=== PATIENT | female | born 1965 | race Caucasian/White ===

== ENCOUNTER 2017-01-07 13:28 | Observation (INO) | payer MEDICAID, SELFPAY ==
[2017-01-07 13:49] VITALS: BP 125/99; PULSE 90; RESP 18; TEMP 36.8
[2017-01-07 13:54] VITALS: BMI 30.4
--- NOTE | 2017-01-07 13:57 | HP.PCM_ITS ---
Problem List (1) Hepatitis C Status: Chronic Qualifiers: Viral hepatitis chronicity: unspecified (2) Tobacco use Status: Chronic (3) Anxiety and depression Status: Chronic (4) Obesity (BMI 30.0-34.9) Status: Chronic History of Present Illness Date of Admission: 01/07/17 Chief Complaint: Acute Opiate Withdrawal The patient is a 51 y/o F w/ PMHx: Tobacco use, Anxiety and Depression, IVDA w/ Heroine clean x 2 years w/ recent relapse 6-8 weeks prior w/ 1-1.5 gm day usage who presents to the [facility] at [facility] on 01/07/17 w/ noted opiate withdrawal onset starting 01/06/17 afternoon following last dose 01/06/17 8:30 am of approximately 0.25 gram, last injected into her wrists with abdominal pain/ cramping, generalized body aches and pains, rhinorrhea, piloerection, fatigue, restless leg, sweating, yawning. Patient interested in attaining clean status and notes that she has been in the acute withdrawal settings once prior. She currently notes being homeless. She admits to depression and anxiety but is not on any treatment but denies SI. She notes interest in obtaining hepatitis C treatment once able. Past Medical History Past Medical History (Chronic Problems): Chronic Problems Anxiety and depression (Chronic) Hepatitis C (Chronic) Obesity (BMI 30.0-34.9) (Chronic) Tobacco use (Chronic) Allergies No Known Allergies Allergy (Verified 01/07/17 13:51) Surgical History: - - Left breast lumpectomy ?2, cholecystectomy, appendectomy, ?3. 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 Tobacco Use: Cigarettes Alcohol: None Drugs: Heroin, Marijuana - *Family History Maternal History Items: No pertinent history Paternal History Items: No pertinent history Review of Systems Constitutional: Reports: Anorexia, Chills, Malaise, Weakness, Fatigue. Denies: Fever, Weight Change HEENT: Reports: Head Aches. Denies: Sinus Congestion, Sinus Drainage Cardiovascular: Denies: Chest Pain, Palpitations Respiratory: Denies: Cough, Shortness of breath at rest, Sputum production Gastrointestinal: Reports: Abdominal Pain, Diarrhea, Nausea. Denies: Vomiting Genitourinary: Denies: Dysuria Musculoskeletal: Reports: Back Pain, Leg Pain, Neck Pain, Shoulder Pain. Denies : Joint Pain, Joint Tenderness Skin: Denies: Rash, Wounds Neurological: Denies: Numbness, Tingling, Focal weakness Psychiatric: Reports: Anxiety, Depression. Denies: Homicidal Ideations, Suicidal Ideations Hematologic/ Lymphatic: Denies: Easy Bruising, Easy Bleeding VTE Information - Inpt Only VTE Present on Admission: No VTE Mechan Device Prophylaxis: SCD's VTE Pharm Prophylaxis ordered?: No Reason prophylaxis not ordered:: Treatment Not Indicated Subjective: Seated upright in the bed, mildly anxious appearing, acute withdrawal evident. Objective: Physical Examination: General: awake, alert, oriented x 3 and cooperative, seated upright in bed, mildly agitated, acute withdrawal evident. Skin: normal color, turgor, no icterus, cyanosis, BL wrist and forearm injection sites without evidence of infection or erythema, NTTP. HEENT: AT/NC, EOMI, PERRLA, mild rhinorrhea and congested noted, dry MM, no carotid bruits or JVD noted. Lungs: CTA bilaterally, moderate effort, moderate decrease BL bases, no rales, ronchi or wheezing. Heart: Regular rate and rhythm; no gallop, rub audible. Abdomen: soft, mild generalized TTP, ND, hyperactive BS, + HM. Extremities: no cyanosis, clubbing, or edema. Neurological: patient awake, alert, oriented x 3; cognitive function intact; pupils equally reactive to light and accomodation; cranial nerves II-XII grossly normal, moving all 4 extremities, no focal deficits, strength moderately globally decreased secondary to acute presentation. Psychiatric: affect appears mildly agitated and anxious, no acute evidence of depressive feelings. - Physical Exam Vital Signs Temp Pulse Resp BP Pulse Ox 98.3 F 90 18 125/99 01/07/17 13:49 01/07/17 13:49 01/07/17 13:49 01/07/17 13:49 Weight: 177 lb 4.026 oz Body Mass Index (BMI) 30.4 Assessment/Plan The patient is a 51 y/o F w/ PMHx: Tobacco use, Anxiety and Depression, IVDA w/ Heroine clean x 2 years w/ recent relapse 6-8 weeks prior w/ 1-1.5 gm day usage who presents to the [facility] at [facility] on 01/07/17 w/ noted acute opiate withdrawal. (1) Acute Opiate Withdrawal: Will admit to [place], obtain routine labs including CBC , CMP, urine for drug screen, urinalysis, serum lipase, routine EKG and will initiate and continue on [facility] service protocol with tapering course of Subutex, as needed Seroquel, Librium, Sinemet, Catapres, Bentyl, Vistaril, IV fluids, IV antiemetics, Tylenol as needed for pain. Once patient clinically improved and completion of taper nearing will plan [facility] assistance for transition to next level of rehabilitation care. (2) Polysubstance Abuse, IVDA Hx, History of Hepatitis C, Chronic: Patient currently not candidate for hep C treatment currently as needs to be clean, sober x 6 months, documented attendance NA or AA meetings, counseling and ongoing negative drug screens. Once appropriate GI, ID to initiate. HIV, hepatitis panel to assess for co-infection pending. Encouraged PCP establishment and follow-up. (3) Tobacco Abuse: Encouraged cessation, inpatient consultation per RT, NR if desired. (4) Depression and Anxiety: Recommendation for consideration of SSRI, possible sertraline given low cost and effectiveness in addition to therapy. (5) Obesity: Weight loss and lifestyle recommendations encouraged. (6) DVT Prophylaxis: TEDs, low risk, ambulation.
[2017-01-07 14:00] VITALS: BMI 30.4
[2017-01-07] MEDS: Buprenorphine HCl 2 MG TAB.SUBL SL ×2 (14:29→21:33)
[2017-01-07] MEDS: Carbidopa/Levodopa 25/100 Tablet PO (14:29)
[2017-01-07] MEDS: cloNIDine HCl 0.1 MG Tablet 0.2 MG PO (14:29)
[2017-01-07] MEDS: chlordiazePOXIDE 25 MG Capsule PO ×3 (14:29→21:33)
[2017-01-07] MEDS: Loperamide 2 MG Capsule PO (14:29)
[2017-01-07] MEDS: Methocarbamol 750 MG Tablet PO (14:29)
[2017-01-07] MEDS: QUEtiapine 25 MG Tablet PO (14:29)
[2017-01-07 14:54] LABS: Absolute Lymphocyte Count 2.19 X10^3/ul (0.83-4.51); Absolute Neutrophil Count 6.9 X10^3/uL (2.0-7.7); Basophil# 0.03 X10^3/uL; Basophil% 0.3 % (0-1); Eosinophil# 0.02 X10^3/uL; Eosinophils% 0.2 % (0-5); Hematocrit 48.3 % (37-47); Hemoglobin 16.7 g/dl (12.0-15.0); Lymphocyte # 2.19 X10^3/ul (4.0); Lymphocyte % 22.5 % (19-41); Mean Corp Hgb Conc 34.6 g/gl (32-36); Mean Corpuscular Hgb 30.8 pg (27.0-32.0); Mean Corpuscular Volume 89.1 fL (81-99); Mean Platelet Vol. 11.9 fl (6.2-12.0); Monocyte# 0.62 X10^3/uL; Monocyte% 6.4 % (0-10); Neutrophil # 6.87 X10^3/uL (2.7-7.7); Neutrophil % 70.5 % (47-70); POSITIVE COUNT NO; POSITIVE DIFFERENTIAL NO; POSITIVE MORPHOLOGY NO; Platelet Count 240 K/mm3 (150-450); RBC Distribution Width CV 12.5 % (11.6-14.6); Red Blood Count 5.42 M/mm3 (4.2-5.4); White Blood Count 9.7 K/mm3 (4.4-11.0)
[2017-01-07 14:59] LABS: International Normalized Ratio 1.1; Prothrombin Time (Protime)PT. 14.1 SECONDS (11.7-14.9)
[2017-01-07 15:16] LABS: Alcohol, Blood (Medical)-Serum < 3.0 mg/dL
[2017-01-07 15:19] LABS: ALB/GLOB Ratio 0.9 RATIO (0.9-2.4); AST(SGOT) 32 U/L (15-37); Alanine Aminotransfer ALT/SGPT 45 U/L (12-78); Albumin, Serum 4.1 g/dL (3.4-5.0); Alkaline Phosphatase 108 U/L (45-117); Anion Gap 10 (5-15); BUN 7 mg/dL (7-18); Calcium,Total 9.7 mg/dL (8.5-10.1); Chloride 107 mmol/L (98-107); Creatinine, Serum 0.78 mg/dL (0.55-1.02); EST Glomerular Filtration Rate 82 mL/min (>60); Est Glom Filt Rate - Afr Amer 100 mL/min (>60); Estimated Creatinine Clearance 73.68 ml/min; Globulin 4.6 g/dL (2.3-3.5); Glucose 95 mg/dL (70-110); Lipase 115 U/L (73-393); Potassium 3.7 mmol/L (3.5-5.1); Protein, Total 8.7 g/dL (6.4-8.2); Sodium Level 140 mmol/L (136-145)
[2017-01-07 18:29] VITALS: BP 101/65; PULSE 78; RESP 18; TEMP 36.7
[2017-01-07 18:42] LABS: Bacteria 0 SEEN /hpf (None Seen)
[2017-01-07 18:49] LABS: Color, Urine Yellow (Yellow); Glucose, Dipstick Normal (Normal); Ketone-Dipstick 5 mg/dl (Negative); Leukocyte Esterase-Dipstick 25 /ul (Negative); Nitrite-Dipstick Negative (Negative); Occult Blood-Urine 10 /ul (Negative); Protein-Dipstick 30 mg/dl (Negative); Urine Clarity Sl. Cloudy (Clear); Urine Urobilinogen 1 mg/dl (Normal)
[2017-01-07 18:50] LABS: Urine Bilirubin Dipstick 1 mg/dL (Negative)
[2017-01-07 18:54] LABS: Red Blood Cells-Urine 0-5 SEEN /hpf (0-5); Squamous Epithelial Cells - UA 0-5 SEEN /hpf (5-10); White Blood Cells 0-5 SEEN /hpf (0-5)
[2017-01-07 18:55] LABS: Mucous, Urine 3+ /hpf (<or=2+)
[2017-01-07 19:00] LABS: Amphetamine Urine VISTA NEGATIVE (<1000 ng/mL); Barbiturate Urine VISTA NEGATIVE (< 200 ng/mL); Benzodiazepine Urine VISTA POSITIVE (< 200 ng/mL); Cocaine Urine VISTA NEGATIVE (< 300 ng/mL); Ecstacy Urine VISTA NEGATIVE (< 500 ng/mL); Methadone Urine VISTA NEGATIVE (< 300 ng/mL); PCP Urine VISTA NEGATIVE (< 25 ng/mL); THC Urine VISTA POSITIVE (< 50 ng/mL); Vista UDS pH Range 6
[2017-01-07 19:51] VITALS: BP 97/61; PULSE 72; RESP 16; TEMP 36.3; O2SAT 98
[2017-01-07] MEDS: traZODone 50 MG Tablet PO (21:34)
[2017-01-08 02:27] VITALS: BP 92/62; PULSE 62; RESP 16; TEMP 36.4; O2SAT 98
[2017-01-08] MEDS: chlordiazePOXIDE 25 MG Capsule PO ×5 (02:30→21:39)
[2017-01-08] MEDS: Dicyclomine 10 MG Capsule 20 MG PO ×2 (02:30→17:59)
[2017-01-08] MEDS: Buprenorphine HCl 2 MG TAB.SUBL SL ×3 (06:12→21:39)
--- NOTE | 2017-01-08 09:29 | PN_ITS ---
Subjective: Patient denies any acute events overnight per self and per nursing report aside difficulty sleeping secondary to patient yelling out per her report. He notes withdrawal symptoms markedly improved since initial presentation. Patient denies fevers, chills, nausea, emesis, abdominal pain, chest pain or dyspnea. Objective: Physical Examination: General: awake, alert, oriented x 3 and cooperative, seated upright in bedside chair, NAD, calm, fatigued appearance. Skin: normal color, turgor, no icterus, cyanosis, BL wrist and forearm injection sites without evidence of infection or erythema, NTTP. HEENT: AT/NC, EOMI, PERRLA, MMM. Lungs: CTA bilaterally, moderate effort, moderate decrease BL bases, no rales, ronchi or wheezing. Heart: Regular rate and rhythm; no gallop, rub audible. Abdomen: soft, NTTP, ND, normalized BS. Extremities: no cyanosis, clubbing, or edema, see skin. Neurological: patient awake, alert, oriented x 3; cognitive function intact; pupils equally reactive to light and accomodation; cranial nerves II-XII grossly normal, moving all 4 extremities, no focal deficits, strength improved, mildly globally decreased. Psychiatric: affect appears normalized, no acute evidence of depressive or anxiety feelings. Vitals/I&O's: Vital Signs Temp Pulse Resp BP Pulse Ox 97.5 F 62 16 92/62 98 01/08/17 02:27 01/08/17 02:27 01/08/17 02:27 01/08/17 02:27 01/08/17 02:27 Oxygen Delivery Method Room Air Weight: 177 lb 4.026 oz Body Mass Index (BMI) 30.4 Intake and Output for Last 24 Hours 01/06/17 01/07/17 01/08/17 23:59 23:59 23:59 Intake Total 480 480 Balance 480 480 Laboratory Results 01/07/17 14:30: Hepatitis A IgM Ab Pending, Hepatitis A Ab Total Pending, Hep Bs Antigen Pending, Hep B Core Total Ab Pending, Hep B Core IgM Ab Pending, Hepatitis C Comment Pending, HIV 1&2 Ag/Ab, 4th Gen Pending 01/07/17 14:30: WBC 9.7, RBC 5.42 H, Hgb 16.7 H, Hct 48.3 H, MCV 89.1, MCH 30.8 , MCHC 34.6, RDW 12.5, RDW Differential 40.0, Plt Count 240, MPV 11.9, Immature Gran % (Auto) 0.100, Neut % (Auto) 70.5 H, Lymph % (Auto) 22.5, [place] % (Auto) 6.4, Eos % (Auto) 0.2, Baso % (Auto) 0.3, Absolute Neuts (auto) 6.9, Absolute Lymphs (auto) 2.19, Total Counted Not Reportable 01/07/17 14:30: PT 14.1, INR 1.1 01/07/17 14:30: Sodium 140, Potassium 3.7, Chloride 107, Carbon Dioxide 23.0, Anion Gap 10, BUN 7, Creatinine 0.78, Estim Creat Clear Calc 73.68, Est GFR ( MDRD) Af Amer 100, Est GFR (MDRD) Non-Af 82, BUN/Creatinine Ratio 9.0 L, Glucose 95, Calcium 9.7, Total Bilirubin 0.80, AST 32, ALT 45, Alkaline Phosphatase 108, Total Protein 8.7 H, Albumin 4.1, Globulin 4.6 H, Albumin/ Globulin Ratio 0.9, Lipase 115 01/07/17 14:30: Ethyl Alcohol < 3.0 01/07/17 : Urine Opiates Screen NEGATIVE, Urine Methadone Screen NEGATIVE, Ur Barbiturates Screen NEGATIVE, Ur Phencyclidine Scrn NEGATIVE, Ur Amphetamines Screen NEGATIVE, U Methamphetamin-MDMA NEGATIVE, U Benzodiazepines Scrn POSITIVE H, Urine Cocaine Screen NEGATIVE, U Cannabinoids Screen POSITIVE H, Ur Drug Screen Comment 01/07/17 : Urine Color Yellow, Urine Clarity Sl. Cloudy, Urine pH 6.0, Ur Specific [place] 1.020, Urine Protein 30 H, Urine Glucose (UA) Normal, Urine Ketones 5 H, Urine Occult Blood 10 H, Urine Nitrite Negative, Urine Bilirubin 1 H, Urine Urobilinogen 1 H, Ur Leukocyte Esterase 25 H, Urine RBC 0-5 SEEN, Urine WBC 0-5 SEEN, Ur Squamous Epith Cells 0-5 SEEN, Urine Bacteria 0 SEEN, Urine Mucus 3+ Current Medications Acetaminophen (Tylenol) 650 mg PO Q4H PRN PRN PRN Reason: Temp>99.1F Al Hydroxide/Mg Hydroxide (Mylanta Ii) 30 ml PO Q6H PRN PRN PRN Reason: dyspesia Bisacodyl (Dulcolax) 10 mg RECTAL DAILY PRN PRN Reason: Constipation Buprenorphine HCl (Buprenorphine Hcl) 4 mg SL Q8H JODY PRN Reason: Taper Stop: 01/10/17 18:29 Last Admin: 01/08/17 06:12 Dose: 4 mg Carbidopa/Levodopa (Sinemet) 1 tablet PO Q8H PRN PRN PRN Reason: RESTLESSNESS Last Admin: 01/07/17 14:29 Dose: 1 tablet Chlordiazepoxide (Librium) 25 mg PO Q4 JODY Stop: 01/08/17 10:01 Last Admin: 01/08/17 06:12 Dose: 25 mg Chlordiazepoxide (Librium) 25 mg PO Q6H PRN PRN PRN Reason: Mod-Sev Anxiety (score 2-3/3) Clonidine (Catapres) 0.1 mg PO Q2H PRN PRN Reason: Hot/Cold Sweats or Anxiety Dicyclomine HCl (Bentyl) 20 mg PO Q6H PRN PRN PRN Reason: Abdomnial Discomfort Last Admin: 01/08/17 02:30 Dose: 20 mg Folic Acid (Folic Acid) 1 mg PO DAILY@0800 [facility] Hydroxyzine Pamoate (Vistaril) 50 mg PO Q6H PRN PRN PRN Reason: Mild Anxiety (score 1/3) Last Admin: 01/07/17 14:29 Dose: 50 mg Ibuprofen (Motrin) 800 mg PO Q8H PRN PRN PRN Reason: Mild-Moderate Pain (1-5/10) Loperamide HCl (Imodium) 2 - 4 mg PO UD PRN PRN Reason: LOOSE STOOLS Last Admin: 01/07/17 14:29 Dose: 4 mg Methocarbamol (Methocarbamol) 750 mg PO 4X/DAY PRN PRN Reason: Muscle Aches Last Admin: 01/07/17 14:29 Dose: 750 mg Multivitamins/Minerals (Multivitamin With Minerals) 1 tablet PO DAILYCM [facility] Nicotine (Nicoderm Cq (Pbkc)) 21 mg TRANSDERM. DAILY [facility] Last Admin: 01/07/17 14:29 Dose: 21 mg Nutritional Formula (Lactose Free) (Ensure Enlive) 120 ml PO 4X/DAY [facility] Last Admin: 01/07/17 21:34 Dose: 120 ml Ondansetron HCl (Zofran Odt) 4 mg PO Q6H PRN PRN PRN Reason: NAUSEA Quetiapine Fumarate (Seroquel) 25 mg PO Q6H PRN PRN PRN Reason: Moderate Anxiety (score 2/3) Last Admin: 01/07/17 14:29 Dose: 25 mg Senna (Senokot) 1 tablet PO QHS PRN PRN Reason: Constipation Thiamine HCl (Vitamin B1) 100 mg PO DAILYCM JODY Trazodone HCl (Desyrel) 50 mg PO QHS [facility] Last Admin: 01/07/17 21:34 Dose: 50 mg Assessment/Plan The patient is a 51 y/o F w/ PMHx: Tobacco use, Anxiety and Depression, IVDA w/ Heroine clean x 2 years w/ recent relapse 6-8 weeks prior w/ 1-1.5 gm day usage who presents to the [facility] at [facility] on 01/07/17 w/ noted acute opiate withdrawal. (1) Acute Opiate Withdrawal: Admitted to [place], routine labs obtained and not marked appearing, UDS w/ + BZD and cannabis. Initiated on and will continue [facility] service protocol with tapering course of Subutex, as needed Seroquel, Librium, Sinemet, Catapres, Bentyl, Vistaril, IV fluids, IV antiemetics, Tylenol as needed for pain. Once patient clinically improved and completion of taper nearing will plan [facility] assistance for transition to next level of rehabilitation care. (2) Polysubstance Abuse, IVDA Hx, History of Hepatitis C, Chronic: Patient currently not candidate for hep C treatment currently as needs to be clean, sober x 6 months, documented attendance NA or AA meetings, counseling and ongoing negative drug screens. Once appropriate GI, ID to initiate. HIV, hepatitis panel to assess for co-infection pending. Encouraged PCP establishment and follow-up. (3) Tobacco Abuse: Encouraged cessation, inpatient consultation per RT, NR if desired. (4) Depression and Anxiety: Recommendation for consideration of SSRI, possible sertraline given low cost and effectiveness in addition to therapy. (5) Obesity: Weight loss and lifestyle recommendations encouraged. (6) DVT Prophylaxis: TEDs, low risk, ambulation.
[2017-01-08 10:52] VITALS: BP 87/61; PULSE 60; RESP 18; TEMP 36.3
[2017-01-08] MEDS: Folic Acid 1 MG Tablet PO (10:55)
[2017-01-08] MEDS: Multivitamins,Ther W-Minerals Tablet 1 TABLET PO (10:55)
[2017-01-08] MEDS: Thiamine Hydrochloride 100 MG Tablet PO (10:55)
[2017-01-08] MEDS: Carbidopa/Levodopa 25/100 Tablet PO ×2 (11:00→20:35)
[2017-01-08] MEDS: Methocarbamol 750 MG Tablet PO ×3 (11:00→21:39)
[2017-01-08] MEDS: Ondansetron ODT 4 MG Tablet PO ×2 (11:00→17:59)
[2017-01-08] MEDS: QUEtiapine 25 MG Tablet PO ×2 (11:00→21:39)
[2017-01-08 14:00] VITALS: BP 88/43; PULSE 64; RESP 18; TEMP 36.8
[2017-01-08 17:53] VITALS: BP 98/59; PULSE 61; RESP 18; TEMP 37
[2017-01-08 19:28] VITALS: BP 91/56; PULSE 61; RESP 16; TEMP 36.6
[2017-01-08] MEDS: Ibuprofen 400 MG Tablet 800 MG PO (20:35)
[2017-01-08] MEDS: traZODone 50 MG Tablet PO (21:39)
[2017-01-09] MEDS: Acetaminophen 325 MG Tablet 650 MG PO (03:56)
[2017-01-09 03:58] VITALS: BP 94/55; PULSE 59; RESP 16; TEMP 36.6
[2017-01-09] MEDS: Carbidopa/Levodopa 25/100 Tablet PO ×2 (06:16→21:24)
[2017-01-09] MEDS: Buprenorphine HCl 2 MG TAB.SUBL SL ×2 (06:16→18:09)
[2017-01-09] MEDS: chlordiazePOXIDE 25 MG Capsule PO ×3 (06:16→19:13)
[2017-01-09] MEDS: Methocarbamol 750 MG Tablet PO ×3 (06:16→21:23)
--- NOTE | 2017-01-09 06:48 | PCM.PN.HOSP ---
Subjective: Patient with no acute events overnight per self and per nursing report. She did this morning admit to some reflux symptoms and had requested Mylanta which was administered. She additionally noted some dyspepsia and mild nausea with this episode but this has resolved at this time. Discussed treatment since and famotidine oral regimen also started. States that withdrawal symptoms are currently alleviated and she aside from mild anxiety is feeling well. Patient denies fevers, chills, nausea, emesis, abdominal pain, chest pain or dyspnea. Objective: Physical Examination: General: awake, alert, oriented x 3 and cooperative, seated upright in bedside chair, NAD. Skin: normal color, turgor, no icterus, cyanosis, BL wrist and forearm injection sites without evidence of infection or erythema. HEENT: AT/NC, EOMI, PERRLA, MMM. Lungs: CTA bilaterally, moderate effort, moderate decrease BL bases, no rales, ronchi or wheezing. Heart: Regular rate and rhythm; no gallop, rub audible. Abdomen: soft, NTTP, ND, normalized BS. Extremities: no cyanosis, clubbing, or edema, see skin. Neurological: patient awake, alert, oriented x 3; cognitive function intact; pupils equally reactive to light and accomodation; cranial nerves II-XII grossly normal, moving all 4 extremities, no focal deficits, strength improved, near baseline, preserved. Psychiatric: affect appears normal, notes can be anxious at night, but currently no acute evidence of depressive or anxiety feelings. Vitals/I&O's: Vital Signs Temp Pulse Resp BP Pulse Ox 98 F 59 16 94/55 98 01/09/17 03:58 01/09/17 03:58 01/09/17 03:58 01/09/17 03:58 01/08/17 02:27 Oxygen Delivery Method Room Air Weight: 177 lb 4.026 oz Body Mass Index (BMI) 30.4 Intake and Output for Last 24 Hours 01/07/17 01/08/17 01/09/17 23:59 23:59 23:59 Intake Total 480 1320 Balance 480 1320 Current Medications Acetaminophen (Tylenol) 650 mg PO Q4H PRN PRN PRN Reason: Temp>99.1F Last Admin: 01/09/17 03:56 Dose: 650 mg Al Hydroxide/Mg Hydroxide (Mylanta Ii) 30 ml PO Q6H PRN PRN PRN Reason: dyspesia Bisacodyl (Dulcolax) 10 mg RECTAL DAILY PRN PRN Reason: Constipation Buprenorphine HCl (Buprenorphine Hcl) 2 mg SL Q12H JODY PRN Reason: Taper Stop: 01/10/17 18:29 Last Admin: 01/09/17 06:16 Dose: 2 mg Carbidopa/Levodopa (Sinemet) 1 tablet PO Q8H PRN PRN PRN Reason: RESTLESSNESS Last Admin: 01/09/17 06:16 Dose: 1 tablet Chlordiazepoxide (Librium) 25 mg PO Q6H PRN PRN PRN Reason: Mod-Sev Anxiety (score 2-3/3) Last Admin: 01/09/17 06:16 Dose: 25 mg Clonidine (Catapres) 0.1 mg PO Q2H PRN PRN Reason: Hot/Cold Sweats or Anxiety Dicyclomine HCl (Bentyl) 20 mg PO Q6H PRN PRN PRN Reason: Abdomnial Discomfort Last Admin: 01/08/17 17:59 Dose: 20 mg Folic Acid (Folic Acid) 1 mg PO DAILY@0800 [facility] Last Admin: 01/08/17 10:55 Dose: 1 mg Hydroxyzine Pamoate (Vistaril) 50 mg PO Q6H PRN PRN PRN Reason: Mild Anxiety (score 1/3) Last Admin: 01/09/17 03:56 Dose: 50 mg Ibuprofen (Motrin) 800 mg PO Q8H PRN PRN PRN Reason: Mild-Moderate Pain (1-5/10) Last Admin: 01/08/17 20:35 Dose: 800 mg Loperamide HCl (Imodium) 2 - 4 mg PO UD PRN PRN Reason: LOOSE STOOLS Last Admin: 01/07/17 14:29 Dose: 4 mg Methocarbamol (Methocarbamol) 750 mg PO 4X/DAY PRN PRN Reason: Muscle Aches Last Admin: 01/09/17 06:16 Dose: 750 mg Multivitamins/Minerals (Multivitamin With Minerals) 1 tablet PO DAILYCM [facility] Last Admin: 01/08/17 10:55 Dose: 1 tablet Nicotine (Nicoderm Cq (Pbkc)) 21 mg TRANSDERM. DAILY [facility] Last Admin: 01/08/17 10:55 Dose: 21 mg Nutritional Formula (Lactose Free) (Ensure Enlive) 120 ml PO 4X/DAY [facility] Last Admin: 01/08/17 21:39 Dose: 120 ml Ondansetron HCl (Zofran Odt) 4 mg PO Q6H PRN PRN PRN Reason: NAUSEA Last Admin: 01/08/17 17:59 Dose: 4 mg Quetiapine Fumarate (Seroquel) 25 mg PO Q6H PRN PRN PRN Reason: Moderate Anxiety (score 2/3) Last Admin: 01/08/17 21:39 Dose: 25 mg Senna (Senokot) 1 tablet PO QHS PRN PRN Reason: Constipation [facility] Last Admin: 01/08/17 10:55 Dose: 100 mg Trazodone HCl (Desyrel) 50 mg PO QHS [facility] Last Admin: 01/08/17 21:39 Dose: 50 mg Assessment/Plan The patient is a 51 y/o F w/ PMHx: Tobacco use, Anxiety and Depression, Chronic Hepatitis C, IVDA w/ Heroine clean x 2 years w/ recent relapse 6-8 weeks prior w/ 1-1.5 gm day usage who presents to the [facility] at [facility] on 01/07/17 w/ noted acute opiate withdrawal. (1) Acute Opiate Withdrawal: Admitted to [place], routine labs obtained and not marked appearing, UDS w/ + BZD and cannabis. Initiated on and will continue [facility] service protocol with tapering course of Subutex, as needed Seroquel, Librium, Sinemet, Catapres, Bentyl, Vistaril, IV fluids, IV antiemetics, Tylenol as needed for pain. Once patient clinically improved and completion of taper nearing will plan [facility] assistance for transition to next level of rehabilitation care. Per protocol would plan discharge to home tomorrow. (2) Polysubstance Abuse, IVDA Hx, History of Hepatitis C, Chronic: Patient currently not candidate for hep C treatment currently as needs to be clean, sober x 6 months, documented attendance NA or AA meetings, counseling and ongoing negative drug screens. Once appropriate GI, ID to initiate. HIV, hepatitis panel to assess for co-infection pending. Encouraged PCP establishment and follow-up. (3) Tobacco Abuse: Encouraged cessation, inpatient consultation per RT, NR if desired. (4) Depression and Anxiety: Recommendation for consideration of SSRI, possible sertraline given low cost and effectiveness in addition to therapy. (5) Obesity: Weight loss and lifestyle recommendations encouraged. (6) DVT Prophylaxis: TEDs, low risk, ambulation.
[2017-01-09] MEDS: Ondansetron ODT 4 MG Tablet PO (07:38)
[2017-01-09] MEDS: Mag Hydrox/Al Hydrox/Simeth 30 ML UDC PO (07:38)
[2017-01-09 07:42] VITALS: BP 85/52; PULSE 50; RESP 16; TEMP 36.3; O2SAT 99
[2017-01-09] MEDS: Folic Acid 1 MG Tablet PO (08:57)
[2017-01-09] MEDS: Famotidine 20 MG Tablet PO ×2 (08:57→21:23)
[2017-01-09] MEDS: QUEtiapine 25 MG Tablet PO ×2 (09:01→21:23)
[2017-01-09] MEDS: Multivitamins,Ther W-Minerals Tablet 1 TABLET PO (09:26)
[2017-01-09] MEDS: Thiamine Hydrochloride 100 MG Tablet PO (09:26)
[2017-01-09 12:06] VITALS: BP 98/53; PULSE 54; RESP 16; TEMP 36.6; O2SAT 96
[2017-01-09] MEDS: Ibuprofen 400 MG Tablet 800 MG PO (13:27)
[2017-01-09 15:57] VITALS: BP 91/55; PULSE 57; RESP 16; TEMP 36.4; O2SAT 95
[2017-01-09] MEDS: Dicyclomine 10 MG Capsule 20 MG PO (20:08)
[2017-01-09 21:19] VITALS: BP 90/49; PULSE 56; RESP 16; TEMP 36.6
[2017-01-09] MEDS: traZODone 50 MG Tablet PO (21:23)
[2017-01-10 06:00] VITALS: BP 104/58; PULSE 58; RESP 16; TEMP 36.3
[2017-01-10] MEDS: Buprenorphine HCl 2 MG TAB.SUBL SL (06:26)
--- NOTE | 2017-01-10 08:03 | PCM.DC ---
- Discharge Diagnoses Current Active Problems: Current Active and Chronic Problems Anxiety and depression (Chronic) Hepatitis C (Chronic) Obesity (BMI 30.0-34.9) (Chronic) Tobacco use (Chronic) You will use the following diet at home:: No restrictions Allergies/Adverse Reactions: Allergies No Known Allergies Allergy (Verified 01/07/17 13:51) Medications to take at Discharge Paroxetine HCl [Paxil] 20 mg PO DAILY #30 tablet 01/10/17 The following prescriptions were given: Paroxetine HCl [Paxil] 20 mg PO DAILY #30 tablet Primary Care Physician: Care Physician,No Primary [Primary Care Provider] - Please follow up with your Primary Care Physician in: in 1-2 weeks Proposed Discharge Date: 01/10/17
--- NOTE | 2017-01-10 08:04 | PCM.DC.SUM ---
Discharge Date and Diagnosis - Problem List Patient Problems: Active and Suspected Problems Acute opioid withdrawal (Acute) Date of Admission: 01/07/17 Date of Discharge: 01/10/17 - Primary Discharge Diagnosis Active and Suspected Problems Acute opioid withdrawal (Acute) - Secondary Discharge Diagnosis Chronic Problems Anxiety and depression (Chronic) Hepatitis C (Chronic) Obesity (BMI 30.0-34.9) (Chronic) Tobacco use (Chronic) Hospital Course and Treatment Summary of Care Provided: The patient is a 51 year old F with history of polysubstance abuse admitted with acute opioid withdrawal: 1. Acute opiate withdrawal patient admitted to regular nursing floor management Subutex medical stabilization protocol. Patient condition did stabilize and was discharged 3 days after her admission 2. Chronic hep C 3. Depression and anxiety patient was previously on Paxil prescription was written for Paxil 20 mg p.o. daily for 30 days patient instructed to follow-up with PCP for refill 4. Tobacco dependence counseled on cessation, offered nicotine patch for tobacco cravings Discharge Diet: No Restrictions Home Medications: Medications to take at Discharge Paroxetine HCl [Paxil] 20 mg PO DAILY #30 tablet 01/10/17 Following Prescrptions Were Given to Patient: Paroxetine HCl [Paxil] 20 mg PO DAILY #30 tablet Primary Care Physician: Care Physician,No Primary [Primary Care Provider] - Please follow up with your Primary Care Physician in: in 1-2 weeks Disposition: Home Minutes spent on discharge:: 35 Patient Condition:: Stable Meaningful Use Info Meaningful Use Diagnoses (Choose all that apply): None applicable
[2017-01-10 08:11] VITALS: BP 94/56; PULSE 59; RESP 18; TEMP 36.8
[2017-01-10] MEDS: Folic Acid 1 MG Tablet PO (08:13)
[2017-01-10] MEDS: Thiamine Hydrochloride 100 MG Tablet PO (08:13)
[2017-01-10] MEDS: Multivitamins,Ther W-Minerals Tablet 1 TABLET PO (08:13)
[2017-01-10] MEDS: Famotidine 20 MG Tablet PO (08:14)
[2017-01-10] MEDS: chlordiazePOXIDE 25 MG Capsule PO (08:17)
[2017-01-12 12:08] LABS: HEPATITIS B SURFACE AG Confirm. indicated (Negative); Hepatitis A AB, Total Negative (Negative); Hepatitis A IgM Antibody Negative (Negative); Hepatitis B Core AB IgM Negative (Negative); Hepatitis B Core Ab Total Negative (Negative); Hepatitis C Ab >11.0 s/co ratio (0.0-0.9)
[2017-01-13 09:35] LABS: HBsAg Confirmation Positive (.); HIV 1/0/2 SCREEN 4TH GEN Non Reactive (Non Reactive); Hep B Surface Antibodies Non Reactive (.)
== END 2017-01-10 11:00 | disposition home or self-care (01) | DRG 773 ==
LOC: MS2 06-03 15:23
PROVIDERS: Admitting Provider Family Medicine; Visit Provider Internal Medicine
DX: F11.23 Opioid dependence with withdrawal (principal); E66.9 Obesity, unspecified; Z68.30 Body mass index [BMI] 30.0-30.9, adult; F17.210 Nicotine dependence, cigarettes, uncomplicated; B18.2 Chronic viral hepatitis C; F32.9 Major depressive disorder, single episode, unspecified; F41.9 Anxiety disorder, unspecified; Z59.0 Homelessness; Z71.3 Dietary counseling and surveillance
CPT/HCPCS: 80053; 80307; 80320; 81001; 83690; 85025; 85610; 86703; 86704; 86705; 86706; 86708; 86709; 86803; 87340; 97802; 99218; 99406; G0378; G0379; G0480